=== PATIENT | female | born 1980 | race Two or more races ===

== ENCOUNTER 2017-08-21 02:18 | Emergency (ER) | payer MEDICAID ==
[~2017-08-21] VITALS: Ht 170.2 cm; Wt 99.8 kg
[2017-08-21] MEDS ORDERED: AMOXICILLIN TRIHYDRATE 250 MG CAPSULE ONE (02:41)
--- NOTE | 2017-08-21 02:42 | NUR ---
Patient discharged to home in stable conditon. Written and verbal after care instructions given. Patient verbalizes understanding of instructions. Ambulated from ER with stable gait. All belongings with patient.
[2017-08-21] MEDS ORDERED: AMOXICILLIN TRIHYDRATE 250 MG CAPSULE PO ONE (02:45)
[2017-08-21 02:47] VITALS: BP 128/81
== END 2017-08-21 02:48 | disposition home or self-care (01) ==
LOC: ER 02:23
DX: K11.20 Sialoadenitis, unspecified (principal)
CPT/HCPCS: 99283; A4663

== ENCOUNTER 2018-02-20 17:54 | Emergency (ER) | payer MEDICAID ==
[~2018-02-20] VITALS: Ht 162.6 cm; Wt 108.9 kg
--- NOTE | 2018-02-20 19:07 | NUR ---
Pt. seen by
--- NOTE | 2018-02-20 19:10 | NUR ---
Report given to incoming rn. Branch
--- NOTE | 2018-02-20 19:25 | NUR ---
Report received. Saline lock placed on patient.
[2018-02-20 19:31] LABS: BASOPHILS % (AUTO) 0.7 % (0.0-2.0); EOSINOPHILS # (AUTO) 0.1 K/uL (0.0-0.7); HEMATOCRIT 32.9 % (31.2-41.9); HEMOGLOBIN 10.4 g/dL (10.9-14.3); LYMPHOCYTES % (AUTO) 29.4 % (20.5-51.5); MEAN CORPUSCULAR HEMOGLOBIN 21.5 uug (24.7-32.8); MEAN CORPUSCULAR HGB CONC 32 g/dL (32.3-35.6); MEAN CORPUSCULAR VOLUME 68.2 fL (75.5-95.3); MONOCYTES # (AUTO) 0.4 K/uL (2.0-10.0); MONOCYTES % (AUTO) 5.8 % (0.0-11.0); NEUTROPHILS # (AUTO) 4.4 K/uL (1.8-8.9); NEUTROPHILS % (AUTO) 63.1 % (38.5-71.5); PLATELET COUNT (AUTO) 278 K/uL (179-408); RED BLOOD CELL COUNT(AUTO) 4.83 MIL/uL (3.63-4.92)
[2018-02-20] MEDS ORDERED: IOHEXOL 350 100 ML INFUS..BTL ONE (20:01)
[2018-02-20] MEDS ORDERED: SWABABLE VALVE TRANSFER SET EA MC ONE (20:01)
[2018-02-20] MEDS ORDERED: NORMAL SALINE FLUSH 10 ML DISP.SYRIN ONE (20:01)
[2018-02-20] MEDS ORDERED: IV NORMAL SALINE 250 ML IV ONE (20:01)
[2018-02-20 20:06] LABS: ALANINE AMINOTRANSFERASE 22 U/L (14-59); ALKALINE PHOSPHATASE 66 U/L (50-136); ASPARTATE AMINOTRANSFERASE 16 U/L (15-37); BILIRUBIN,DIRECT < 0.1 mg/dL (0.0-0.2); BILIRUBIN,TOTAL 0.2 mg/dL (0.2-1.0); CARBON DIOXIDE 26 mmol/L (21-32); CHLORIDE 104 mmol/L (98-107); CREATININE 0.8 mg/dL (0.6-1.3); GLUCOSE 95 mg/dL (74-106); POTASSIUM 3.9 mmol/L (3.5-5.1); TOTAL PROTEIN, SERUM 8.3 g/dL (6.4-8.2); UREA NITROGEN, BLOOD 13 mg/dL (7-18)
--- NOTE | 2018-02-20 21:48 | NUR ---
[place] from [facility] .Faxed Fax sheet as requested
--- NOTE | 2018-02-21 00:40 | NUR ---
Report given to Peter ROPER at [facility]. Pt to be admitted to room 4405 bed 1. Awaiting merchandise pickup/receiving associate.
== END 2018-02-21 01:25 | disposition short-term general hospital (02) ==
LOC: ER 17:58
DX: I67.1 Cerebral aneurysm, nonruptured (principal); R22.1 Localized swelling, mass and lump, neck
CPT/HCPCS: 36415; 70498; 80048; 80076; 85025; 99285; Q9967; A4663; J3490; J7050